=== PATIENT | male | born 1980 | race Caucasian/White ===

== ENCOUNTER 2022-11-05 03:27 | Emergency (ER) | payer SELFPAY ==
[2022-11-05 03:31] VITALS: BP 171/97; PULSE 80; RESP 15; TEMP 36.1; O2SAT 100
[2022-11-05 03:43] VITALS: BP 169/98; PULSE 76; RESP 16; O2SAT 100
--- NOTE | 2022-11-05 03:45 | PC.NURSE ---
pt present to the er with a abcess over his left ear on his scalp. It is the size of a pea no drainage noted
[2022-11-05] MEDS: SULFAMETHOXAZOLE/TRIMETHOPRIM 800/160 MG DS TABLET 1 TAB PO (03:53)
--- NOTE | 2022-11-05 04:17 | ED.GENADULT ---
HPI - General Adult General Chief complaint: Unspecified Stated complaint: infection on side of head Time Seen by Provider: 11/05/22 03:39 History of Present Illness HPI narrative: 42-year-old male with history of abscesses in the past presents here with what started as an ingrown hair about a week ago, which developed into a boil to the left side of his head that has been more painful especially when he tries to lie on it. No systemic symptoms Related Data Allergies Allergy/AdvReac Type Severity Reaction Status Date / Time No Known Allergies Allergy Verified 11/05/22 03:49 Review of Systems Review of Systems: CONST: No fever. HEENT: Boil on left side of head C/V: No chest pain RESP: No cough GI: No nausea or vomiting M/S: No joint pain. SKIN: Boil on left head NEURO: Pressure feeling to head PSYCH: [No depression] [facility] Past Medical History Medical History (Updated 11/05/22 @ 04:20 by Jojo Charles MD) Abscess of skin or subcutaneous tissue Exam Narrative: EXAMINATION OF ORGAN SYSTEMS/BODY AREAS: Constitutional: Vital signs per nursing GENERAL:[No acute distress, non-toxic appearing.] HEAD: Indurated, tender scabbed area to left side of head EYES: EOMI, conjunctiva normal ENT: Hearing grossly intact; no mastoid swelling/tenderness LUNGS: Nonlabored breathing. HEART: [Regular rate and rhythm] ABD: [Soft], [nontender to palpation] EXT: Normal range of motion SKIN: [No rashes or lesions.] NEURO: [Alert and oriented x 3. No gross focal sensory or strength deficits.] PSYCH: Normal affect Course Vital Signs Vital signs: Vital Signs Temperature 97 F L 11/05/22 03:31 Pulse Rate 80 11/05/22 03:31 Respiratory Rate 15 11/05/22 03:31 Blood Pressure 171/97 H 11/05/22 03:31 Pulse Oximetry 100 11/05/22 03:31 Oxygen Delivery Room Air 11/05/22 03:31 Temperature 97 F L 11/05/22 03:31 Pulse Rate 76 11/05/22 03:43 Respiratory Rate 16 11/05/22 03:43 Blood Pressure 169/98 H 11/05/22 03:43 Pulse Oximetry 100 11/05/22 03:43 Oxygen Delivery Room Air 11/05/22 03:[address] [facility] Narrative Medical decision making narrative: MEDICAL DECISION MAKING AND COURSE IN THE ED WITH INTERPRETATION/REVIEW OF DIAGNOSTIC STUDIES: Electronic medical record was reviewed. Patient presented to the ED with complaint of painful skin lesion. Vitals [were within acceptable limits]. Physical exam revealed area of tenderness and induration consistent with abscess, without fluctuance that may benefit from drainage. I did perform bedside ultrasound and confirmed that there was no pocket of fluid. [Patient was given Bactrim here and a course to continue at home.] The patient is discharged home in stable condition. I have asked the patient to return to the emergency department for worsening pain, worsening and increasing size of skin infection, fevers/chills. The patient is instructed to follow up with a [PCP] in [2] days. Patient verbalized understanding. Vital Signs Vital Signs: Vital Signs Temperature 97 F L 11/05/22 03:31 Pulse Rate 80 11/05/22 03:31 Respiratory Rate 15 11/05/22 03:31 Blood Pressure 171/97 H 11/05/22 03:31 Pulse Oximetry 100 11/05/22 03:31 Oxygen Delivery Room Air 11/05/22 03:31 Temperature 97 F L 11/05/22 03:31 Pulse Rate 76 11/05/22 03:43 Respiratory Rate 16 11/05/22 03:43 Blood Pressure 169/98 H 11/05/22 03:43 Pulse Oximetry 100 11/05/22 03:43 Oxygen Delivery Room Air 11/05/22 03:31 Discharge Plan Discharge Clinical Impression: Abscess of skin or subcutaneous tissue Patient Disposition: Home, Self-Care Condition: Stable Instructions: Antibiotic Form, Abscess (ED) Additional Instructions: Please follow up with a PCP; you can always return for any further issues especially if you have any worsening pain, or if it spreads further, or if your symptoms don't improve with antibiotics. Prescrip
== END 2022-11-05 04:19 | disposition home or self-care (01) ==
LOC: ANHED 04:09
PROVIDERS: Emergency Provider Emergency Medicine
DX: L02.811 Cutaneous abscess of head [any part, except face] (principal)
CPT/HCPCS: 99283; A9270